=== PATIENT | male | born 1965 ===

== ENCOUNTER 2020-12-09 12:14 | Emergency (ER) | payer OTHER, SELFPAY ==
--- NOTE | ~2020-12-09 | XR_ITS ---
EXAMINATION: XR hand RT min 3V EXAM DATE: 12/09/2020 12:25 INDICATION: Initial encounter following injury, with pain of the right 5th digit proximally. Lacerati on. TECHNIQUE: Right hand frontal, lateral and oblique projections obtained and reviewed. There is no pr ior study for comparison. FINDINGS: Right metacarpal bones are unremarkable. . There are no acute fractures or dislocations id entified. There is no subcutaneous gas. The soft tissue is unremarkable. There are no radiopaque foreign bodies. IMPRESSION: No acute osseous findings. Reviewed, dictated and finalized at location A. IMPRESSION: No acute osseous findings.
[2020-12-09 12:19] VITALS: BP 155/92; PULSE 70; RESP 16; TEMP 36.7; O2SAT 99
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
== END 2020-12-09 13:24 | disposition home or self-care (01) ==
LOC: ANHED 13:10
PROVIDERS: Emergency Provider Emergency Medicine; PCP Internal Medicine
DX: S61.411A Laceration without foreign body of right hand, initial encounter (principal); W22.8XXA Striking against or struck by other objects, initial encounter
CPT/HCPCS: 73130; 99283